=== PATIENT | male | born 1995 | race Caucasian/White ===

== ENCOUNTER 2021-07-15 09:42 | Emergency (ER) | payer OTHER ==
[2021-07-15 09:49] VITALS: TEMP 98.9; BMI 38.0
[2021-07-15 10:17] VITALS: BP 173/106; PULSE 91
== END 2021-07-15 10:17 | disposition home or self-care (01) ==
LOC: FER 09:42
DX: L60.8 Other nail disorders (principal)
CPT/HCPCS: 99282-25